=== PATIENT | female | born 1970 | race Caucasian/White ===

== ENCOUNTER 2017-12-15 16:37 | Outpatient (RCR) | payer BC ==
[~2017-12-15] VITALS: Ht 167.6 cm; Wt 138.8 kg
[~2017-12-15 16:37] MED LIST: ACE3 PO; ACE325 PO; IBU800 PO; LISI-347 PO; LOR5/325 PO; NIFE20CA8 PO; NIFS30 PO; NORG1TAB74 PO; OMEP-218 PO; ONDA4TAB PO; PREN-85 PO
--- NOTE | 2017-12-16 12:15 | Medical Nutrition Therapy ---
Nutrition Anthropometrics Height (Inches): 66 Weight (Pounds): 306 (stated wt) Grzegorz Nutrition Score: Grzegorz Nutrition Risk Score: Dietary Referral Nutrition Risk Factors: Nutrition Risk Comment: Physical Findings Physical Appearance: Morbidly Obese 40+ (BMI 49.4) Skin Appearance Skin Appearance: Edema Edema Location Modifier: Edema Location: Type of Edema: Degree of Edema: Gastrointestinal Symptoms GI Symtoms: Tube Present: Bowel Sounds: Recent Bowel Pattern: Stool Characteristics: Nutrition/Food History Breakfast: 2 eggs, 2 sl white toast, butter or 1 pkg reg inst oeatmeal, coffee, sugar Lunch: 3c spagetti, 3 sl [place] toast - ususally leftovers Dinner: 6 oz, meat 1-2c starch, 1c veg Snacks: usually doesn't snack Nutritional Education Nutrition Education Topic: Diabetic Nutrition Learning Readiness: Interested Teaching Methods: Discussion, Handout, Demonstration Nutrition Counseling: Pt new dx diabetes. Reviewed carb counting, plate method and glycemic response to CHO. Discussed typical day of mostly high glycemic index foods. Reviewed typical portions sizes. Typical pasta meal is 12 serving of CHO. Pt interested in wt loss. Provided meal plan of 60-75gm CHO/meal or 2c using plate method. encouraged exercise. Pt scheduled for diabetic classes January 07. Nutrition Monitoring & Eval Nutritional Goals Comment: Behavioural Gosl: 10% wt loss/6 month by" Limiting CHO 60-75/meal Walking dog 15 minutes 5X/week. Going to gym 2X/week for [address] Patient Assessment Time: [address] Assessment Type: RD Education Nutritional Comment: Provided 60 minute diabetes education focusing on nutrition, behavioural goals, support plan. Copies To Copies to: SARAH VELAZQUEZ BETH Dec 16, 2017 12:15
== END 2018-01-19 ==
LOC: DIET 16:37
PROVIDERS: ATTEND Nurse Practitioner Family
DX: E11.65 Type 2 diabetes mellitus with hyperglycemia (principal); E03.9 Hypothyroidism, unspecified; E78.2 Mixed hyperlipidemia; E66.8 Other obesity; Z68.41 Body mass index [BMI] 40.0-44.9, adult
CPT/HCPCS: G0108 ×2

== ENCOUNTER 2019-06-12 08:57 | Outpatient (RCR) | payer BC ==
[~2019-06-12] VITALS: Ht 167.6 cm; Wt 136.1 kg
--- NOTE | 2019-06-12 11:23 | Medical Nutrition Therapy ---
Nutrition Anthropometrics Height (Inches): 66 Weight (Pounds): 300 BMI: 48.4 Grzegorz Nutrition Score: Grzegorz Nutrition Risk Score: Dietary Referral Nutrition Risk Factors: Nutrition Risk Comment: Physical Findings Physical Appearance: Morbidly Obese 40+ Skin Appearance Skin Appearance: Edema Edema Location Modifier: Edema Location: Type of Edema: Degree of Edema: Gastrointestinal Symptoms GI Symtoms: Tube Present: Bowel Sounds: Recent Bowel Pattern: Stool Characteristics: Nutritional Education Nutrition Education Topic: Diabetic Nutrition Learning Readiness: Eager Teaching Methods: Discussion, Handout, Demonstration Response to Teaching: Verbalize understanding, Reinforcement needed Teaching Recipient: Patient Nutrition Counseling: Provided pre- insertion of insulin pump education. Provided education on Bolus Wizard, preset bolus, CHO counting, Hypoglycemia rule of 15, hyperglycemia management, sick day management, BG testing, connection to glucometer The following setting were made: Basel 2.4 Max Basel 3.5 Max Bolus 20 Carb ratio 8 Preset bolus 12 Insulin Sensitivity factor 14 BG target range 100-140 Pt set up to receive education on reservoir filling, infusion set insertion, and review of all setting on 06/12. Pt will need to bring in insulin at that time. Nutrition Monitoring & Eval RD Patient Assessment Time: 90 minutes Nutritional Comment: Provided 120 minutes of pre insulin pump education. Copies To Copies to: SARAH VELAZQUEZ; MICHAEL ALMANZAR ; CHRISTIANO FOLEY Jun 12, 2019 11:23
--- NOTE | 2019-06-14 17:20 | Medical Nutrition Therapy ---
Nutritional Education Nutrition Education Topic: Diabetic Nutrition Learning Readiness: Interested Teaching Methods: Discussion, Handout, Demonstration Response to Teaching: Verbalize understanding, Reinforcement needed Teaching Recipient: Patient Nutrition Counseling: Provided insulin pump education and insertion. Reviewed Bolus Wizard, preset bolus, rui, nicole sears, nicole velázquez. Pt filled reservor and inserted infusion set. Reviewed site selection. Will call pt within 24 hrs. to check BG levels and address any questions, concerns, or problems. Pt was able to successfully demonstrate knowledge of insulin pump. Nutrition Monitoring & Eval RD Patient Assessment Time: [address] Assessment Type: RD Education Nutritional Comment: Provided 60 minutes of pre insulin pump education. Copies To Copies to: SARAH VELAZQUEZ CLINICAL SUPPORT NURSE; MICHAEL ALMANZAR ; CHRISTIANO FOLEY Jun 14, 2019 17:20
--- NOTE | 2019-06-16 12:56 | Medical Nutrition Therapy ---
Nutritional Education Nutrition Education Topic: Diabetic Nutrition Learning Readiness: Interested Teaching Methods: Discussion Response to Teaching: Verbalize understanding Teaching Recipient: Patient Nutrition Counselin hr f/u: Pt was able to successfully change infusion site. Pt reported no problems. Pt cont to be running in 200's. Basal range increased to 2.6 which will give additional 4.8U/day. Will check with pt tomorrow to monitor effect of the basal rate change. Nutrition Monitoring & Eval RD Patient Assessment Time: [address] Assessment Type: RD Education Nutritional Comment: Provided 15 minutes of f/u insulin pump education. Copies To Copies to: SARAH VELAZQUEZ PRESS SET UP PERSON; MICHAEL ALMANZAR ; CHRISTIANO FOLEY Jun 16, 2019 12:56
--- NOTE | 2019-06-18 08:31 | Medical Nutrition Therapy ---
Nutritional Education Nutrition Counselin hr post infusion set insertion f/u: Pt states was able to successfully change infusion set however felt it may be leaking. Pt states no wetness felt around site. Recommend call [employer]'s help line to review possible causes. BG improved with BG within range before meal but increased to 200's post meal. Recommend pt monitor for another day and review. If continue elevated after meals, will adjust CHO ratio. Nutrition Monitoring & Eval RD Patient Assessment Time: [address] Assessment Type: RD Education Nutritional Comment: Provided 15 minutes of f/u insulin pump education. Copies To Copies to: SARAH VELAZQUEZ DEPUTY TREASURER; MICHAEL ALMANZAR ; CHRISTIANO FOLEY Jun 18, 2019 08:31
== END 2019-06-18 ==
LOC: DIET 08:57
PROVIDERS: ATTEND Nurse Practitioner Family
DX: Z46.81 Encounter for fitting and adjustment of insulin pump (principal); Z79.4 Long term (current) use of insulin; Z68.42 Body mass index [BMI] 45.0-49.9, adult